=== PATIENT | male | born 1950 | race Caucasian/White ===

== ENCOUNTER 2017-11-14 17:06 | Inpatient (IN) | payer OTHER, MEDICARE ==
[2017-11-14] MEDS ORDERED: Ticagrelor* 90 MG TAB PO ONE ×2 (17:14→18:33)
[2017-11-14] MEDS ORDERED: Heparin for STEMI(*) 5,000 UNITS/ML 1 ML VIAL IV ONE (17:14)
[2017-11-14] MEDS ORDERED: NS 0.9% 1000 ML* 1,000 ML IV ONE ×2 (17:14→20:43)
[2017-11-14] MEDS ORDERED: Lidocaine 1%* 5 ML VIAL ONE ×2 (17:26→20:16)
[2017-11-14] MEDS ORDERED: Iohexol 350 (CONTRAST) 200 ML MDV IV ONE (17:26)
[2017-11-14] MEDS ORDERED: fentaNYL* 50 MCG/ML 2 ML VIAL (100 MCG VIAL) ONE ×2 (17:27→18:28)
[2017-11-14] MEDS ORDERED: Midazolam* 1 MG/ML 10 ML VIAL (10 MG) ONE (17:27)
--- NOTE | 2017-11-14 17:28 | ED ---
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 The pt is on vacation with his and they had just gotten back to the hotel when he began to feel the pain. The heaviness and pressure was rated 10/10 in severity at onset, but has since started to resolve in the ED and after 3x NTG and aspirin in the ambulance. He denies nausea, vomiting, and back pain. Also in the ambulance, the pt was having ST elevations in the inferior wall. He has hx of thoracic aorta aneurysm which is being monitored. No hx of ulcers, heart cath, or kidney issues. - History of Current Complaint Chief Complaint: EDChestPainROMI Hx Obtained From: Patient Onset/Duration: Started Minutes Ago, Resolved Timing: Lasting Minutes Initial Severity: Severe Current Severity: Mild Pain Intensity: 10 Pain Scale Used: 0-10 Numeric Chest Pain Location: Mid Sternal Chest Pain Radiates: No Character: Crushing, Heaviness, Pressure/Squeezing Aggravating Factor(s): Nothing Alleviating Factor(s): NTG 123 - 3, Other: - baby aspirin Associated Signs and Symptoms: Positive: Chest Pain - mid sternal, Other: - NEGATIVE: back pain. Negative: Nausea, Vomiting - Allergy/Home Medications Allergies/Adverse Reactions: Allergies Allergy/AdvReac Type Severity Reaction Status Date / Time levofloxacin [From Levaquin] Allergy Unknown Verified 11/14/17 17:17 Reaction Details Home Medications: Home Medications Unobtainable 11/14/17 [History Confirmed 11/14/17] PMH/Surg Hx/FS Hx/Imm Hx Cardiovascular History: Reports: Other Cardiovascular Problems/Disorders - thoracic aorta aneurysm - being monitored Denies: Hx Myocardial Infarction History: Denies: Hx Kidney Infection, Hx Renal Disease EENT History: Denies: Hx Deafness Infectious Disease History: No Infectious Disease History: Denies: Traveled Outside the [place] in Last 30 Days - Family History Known Family History: Negative: Cardiac Disease - Social History Lives: With Family Substance Use Type: Reports: None Review of Systems Positive: Chest Pain - crushing, heaviness, pressure Negative: Vomiting, Nausea Positive: Other - NEGATIVE: back pain All Other Systems Reviewed And Are Negative: Yes Physical Exam - Summary Physical Exam Summary: Constitutional: Well-developed, Well-nourished, Alert. (-) Distressed Skin: Warm, Dry HENT: Normocephalic; Atraumatic Eyes: Conjunctiva normal Neck: Musculoskeletal ROM normal neck. (-) JVD, (-) Stridor, (-) Tracheal deviation Cardio: Rhythm regular, rate normal, Heart sounds normal; Intact distal pulses; The pedal pulses are 2+ and symmetric. Radial pulses are 2+ and symmetric. (-) Murmur Pulmonary/Chest wall: Effort normal. (-) Respiratory distress, (-) Wheezes, (-) Rales Abd: Soft, (-) epigastric tenderness, (-) Distension, (-) Guarding, (-) Rebound Musculoskeletal: (-) Edema Lymph: (-) Cervical adenopathy Neuro: Alert, Oriented x3 Psych: Mood and affect Normal Triage Information Reviewed: Yes Vital Signs On Initial Exam: Initial Vitals Temp Pulse Resp BP Pulse Ox 97.9 F 94 22 161/106 95 11/14/17 17:09 11/14/17 17:09 11/14/17 17:09 11/14/17 17:09 11/14/17 17:09 Vital Signs Reviewed: Yes Diagnostics - Vital Signs Vital Signs Temp Pulse Resp BP Pulse Ox 11/14/17 17:09 97.9 F 94 22 161/106 95 - Laboratory Lab Statement: Any lab studies that have been ordered have been reviewed, and results considered in the medical decision making process. 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 The pt is on vacation with his and they had just gotten back to the hotel when he began to feel the pain. The heaviness and pressure was rated 10/10 in severity at onset, but has since started to resolve in the ED and after 3x NTG and aspirin in the ambulance. He denies nausea, vomiting, and back pain. Also in the ambulance, the pt was having ST elevations in the inferior wall. He has hx of thoracic aorta aneurysm which is being monitored. No hx of ulcers, heart cath , or kidney issues. In the ED course, the pt was given nml saline, Fentanyl, Heparin, Iohexol, Lidocaine, Versed, and Brilinta. Patient is diagnosed with STEMI. Patient [facility] be [facility] [place] [facility] [place] further evaluation by Dr. Regan, [facility] , at 1715. Patient understands the need for admission and agrees with this plan. - Diagnoses Provider Diagnoses: STEMI (ST elevation myocardial infarction) - Provider Notifications Discussed Care Of Patient With: Earl Regan Time Discussed With Above Provider: 17:15 Instructed by Provider To: Admit As Inpatient - Patient will be admitted for further evaluation. Discharge - Sign-Out/Discharge Documenting (check all that apply): Patient Departure - Patient will be admitted to [facility] [place] further evaluation. All imaging exams completed and their final reports reviewed: No - Discharge Plan Condition: Stable Disposition: ADMITTED TO [facility] - Billing Disposition and Condition Condition: STABLE Disposition: Admitted to [facility] - Attestation Statements Document Initiated by Scribe: Yes Documenting Scribe: Melissa Elaine Provider For Whom Scribe is Documenting (Include Credential): Kun Tristan MD Scribe Attestation: Melissa Stephen, scribed for Kun Tristan MD on 11/14/17 at 1723. Scribe Documentation Reviewed: Yes Provider Attestation: The documentation as recorded by the Melissa aguilera accurately reflects the service I personally performed and the decisions made by me, Kun Tristan MD
[2017-11-14 17:30] LABS: ABS Basophils 0.1 10^3/ul (0-0.2); ABS Eosinophils 0.2 10^3/ul (0-0.6); ABS Lymphocytes 4.5 10^3/ul (1.0-4.8); ABS Monocytes 0.8 10^3/ul (0-0.8); ABS Neutrophils 7.5 10^3/ul (1.5-7.7); ABS Nucleated RBC 0 10^3/ul; Eosinophil % 1.2 % (0-6); Hematocrit 42 % (42-52); Hemoglobin 14.4 g/dl (14.0-18.0); Lymphocyte % 34.3 % (25-47); Mean Corpuscular HGB Conc 34 g/dl (31-36); Mean Corpuscular Hemoglobin 30 pg (27-31); Mean Corpuscular Volume 87 fL (80-94); Mean Platelet Volume 7.6 um3 (7.4-10.4); Nucleated Red Blood Cells % 0; Platelet Count 132 10^3/ul (150-450); Red Blood Count 4.88 10^6/ul (4.00-5.40); Red Cell Distribution Width 14 % (10.5-15)
[2017-11-14 17:39] LABS: INR 0.91 (0.77-1.02)
[2017-11-14 17:48] LABS: EGFR Non-African American 48.3 (>60)
[2017-11-14] MEDS ORDERED: nitroGLYCERIN DRIP* 25,000 MCG/250 ML BTL ONE (17:59)
[2017-11-14] MEDS ORDERED: Iodixanol* (CONTRAST) 320 MG/ML 100 ML SDV ONE ×2 (18:07→19:04)
[2017-11-14] MEDS ORDERED: Heparin(*) 1000 UNIT/ML 10 ML VIAL CATH LAB IV ONE (18:30)
[2017-11-14] MEDS ORDERED: Heparin 2 UNITS/ML IVPREMIX* 1,000 ML IV ONE (19:10)
[2017-11-14] MEDS ORDERED: Zolpidem TAB* 5 MG PO PRN (20:43)
[2017-11-14] MEDS ORDERED: Nitroglycerin TAB 0.4 MG* 0.4 MG TAB SL PRN (20:43)
[2017-11-14] MEDS ORDERED: ceFAZolin 1 GM ADVAN(*) 1 GM in NS 0.9% 50 ML* 50 ML IVPB ONE (20:54)
[2017-11-14] MEDS: oxyCODONE/Acetamin 5/325 MG* TAB PO PRN (21:23)
[2017-11-14] MEDS: Captopril TAB* 12.5 MG PO SCH (22:10)
[2017-11-14] MEDS: Ticagrelor* 90 MG TAB PO SCH (22:11)
[2017-11-14] MEDS ORDERED: nitroGLYCERIN DRIP* 25,000 MCG/250 ML BTL IV SCH (23:00)
[2017-11-14] MEDS ORDERED: LORazepam INJ* 2 MG/ML 1 ML VIAL IV ONE (23:12)
[2017-11-14] MEDS ORDERED: LORazepam INJ* 2 MG/ML 1 ML VIAL ONE (23:14)
[2017-11-14] MEDS: Metoprolol Tartrate TAB* 25 MG PO SCH (23:16)
[2017-11-15] MEDS: oxyCODONE/Acetamin 5/325 MG* TAB PO PRN ×2 (03:20→10:08)
[2017-11-15] MEDS: Metoprolol Tartrate TAB* 25 MG PO SCH (06:02)
[2017-11-15 06:25] LABS: ABS Basophils 0 10^3/ul (0-0.2); ABS Eosinophils 0.1 10^3/ul (0-0.6); ABS Lymphocytes 3.1 10^3/ul (1.0-4.8); ABS Neutrophils 7.2 10^3/ul (1.5-7.7); ABS Nucleated RBC 0 10^3/ul; Eosinophil % 0.9 % (0-6); Hematocrit 37 % (42-52); Hemoglobin 12.8 g/dl (14.0-18.0); Lymphocyte % 27.2 % (25-47); Mean Corpuscular HGB Conc 35 g/dl (31-36); Mean Corpuscular Hemoglobin 30 pg (27-31); Mean Corpuscular Volume 85 fL (80-94); Mean Platelet Volume 7.9 um3 (7.4-10.4); Nucleated Red Blood Cells % 0.1; Platelet Count 117 10^3/ul (150-450); Red Blood Count 4.29 10^6/ul (4.00-5.40); Red Cell Distribution Width 14 % (10.5-15); White Blood Count 11.4 10^3/ul (3.5-10.8)
[2017-11-15 06:42] LABS: EGFR Non-African American 64.3 (>60)
[2017-11-15] MEDS: Acetaminophen TAB* 325 MG PO PRN ×2 (08:15→16:23)
--- NOTE | 2017-11-15 09:12 | ECHO ---
Patient: JOSEE MCKEE Rec#: [id number] : 1950 Date: 11/15/2017 Age: 67y Height: 175.26 cm / 69.0 in Weight: 113.4 kg / 249.9 lbs Sex: M BSA: 2.27 Room#: [facility]- Admit Date#: 11/14/2017 Type: Inpatient Referring: Mily Riojas MD Reading: Bandar Chappell MD Salt Operator: Shona OrantesJESSE Transthoracic Echocardiogram Indication: STEMI, s/p PCI BP: 128/58 HR: 72 Rhythm: NSR Findings History: HTN, thoracic aortic aneurysm,STEMI, PCI Technical Comments: The study quality is fair. Completed at 0830. Left Ventricle: The left ventricular chamber size is normal. Mild concentric left ventricular hypertrophy is observed. There is a prominent septal knuckle. There is mildly decreased left ventricular systolic function. The estimated ejection fraction is 45-50%. closer to 45%. Inferior and inferoseptal hypokinesis with hyperdynamic function elsewhere. Abnormal left ventricular diastolic function is observed. Abnormal left ventricular diastolic filling is observed, consistent with impaired relaxation. The mid inferior, mid inferoseptal, apical septal, and apical inferior wall segments are hypokinetic (score 2). The basal inferior wall segment is dyskinetic (score 4). Overall wallmotion score index is 1.44 Left Atrium: The left atrium is moderately dilated. Right Ventricle: Moderator Band present. The right ventricle is moderately dilated. The right ventricle wall thickness is mildly increased.6 mm. The right ventricular global systolic function is mildly reduced. Right Atrium: The right atrium is moderately dilated. Aortic Valve: The aortic valve is trileaflet. There is mild thickening of the right coronary cusp. There is evidence of aortic sclerosis without stenosis. There is a trace of aortic regurgitation. There is no evidence of aortic stenosis. Mitral Valve: The mitral valve leaflets are mildly thickened. There is mild mitral regurgitation. There is no evidence of mitral stenosis. Tricuspid Valve: The tricuspid valve leaflets are normal. There is mild tricuspid regurgitation. The right ventricular systolic pressure is estimated at 35 mmHg. There is evidence that pulmonary hypertension may be underestimated. There is no tricuspid stenosis. Pulmonic Valve: The pulmonic valve appears normal. There is a trace pulmonic regurgitation. There is no pulmonic stenosis. Pericardium: There is no significant pericardial effusion. A pericardial fat pad is visualized. Aorta: There is moderate dilatation of the ascending aorta. The aortic arch is not well visualized. There is moderate dilatation of the aortic root. Pulmonary Artery: The main pulmonary artery appears normal. Venous: The inferior vena cava is dilated. There is a greater than 50% respiratory change in the inferior vena cava dimension. Summary: There was not any prior study for comparison. Conclusions Mild concentric left ventricular hypertrophy is observed. There is mildly decreased left ventricular systolic function. The estimated ejection fraction is 45-50%. closer to 45%. Inferior and inferoseptal hypokinesis with hyperdynamic function elsewhere. Abnormal left ventricular diastolic filling is observed, consistent with impaired relaxation. The left atrium is moderately dilated. The right ventricle is moderately dilated. The right ventricle wall thickness is mildly increased.6 mm. The right ventricular global systolic function is mildly reduced. The right atrium is moderately dilated. There is evidence of aortic sclerosis without stenosis. There is mild mitral regurgitation. There is mild tricuspid regurgitation. There is moderate dilatation of the ascending aorta. There is moderate dilatation of the aortic root. Measurements Name Value Normal Range RVIDd (AP) 2D 3.7 cm (0.9 - 2.6) RVDdMajor (2D) 5.5 cm (2.2 - 4.4) RAd ISD 4CH 5.8 cm (3.4 - 4.9) RA (A4C)W 4.8 cm (2.9 - 4.6) IVSd (2D) 1.2 cm (0.6 - 1) LVPWd (2D) 1.1 cm (0.6 - 1) LVIDd (2D) 5.2 cm (3.6 - 5.4) LVIDs (2D) 3 cm - LV FS (2D) 41 % (25 - 45) Aortic Annulus 2.2 cm (1.4 - 2.6) Ao root diameter (2D) 4.3 cm (2.1 - 3.5) Ascending Ao 4.5 cm (2.1 - 3.4) LA dimension (AP) 2D 4.2 cm (2.3 - 3.8) LAd ISD 4CH 5.6 cm (2.9 - 5.3) LA ISD 4CH W 4.5 cm (2.5 - 4.5) Name Value Normal Range LA ESV SP 4CH (A/L) 73 ml - LA ESV SP 2CH (A/L) 105 ml - LA ESV BP (A/L) 99 ml - LA ESV BP (A/L) index 43 ml/m2 - LA ESV SP 4CH (MOD) 63 ml - LA ESV SP 2CH (MOD) 100 ml - Name Value Normal Range MV E-wave Vmax 0.79 m/sec - MV deceleration time 206.8 msec - MV A-wave Vmax 0.65 m/sec - MV E:A ratio 1.21 ratio - LV septal e' Vmax 0.05 m/sec - LV lateral e' Vmax 0.09 m/sec - LV E:e' septal ratio 15.8 ratio - LV E:e' lateral ratio 8.78 ratio - Name Value Normal Range AV Vmax 1.14 m/sec - AV VTI 23.39 cm - AV peak gradient 5.25 mmHg - AV mean gradient 3.01 mmHg - LVOT Vmax 0.72 m/sec - LVOT VTI 13.51 cm - LVOT peak gradient 2.09 mmHg - LVOT mean gradient 1.17 mmHg - ROSY Vmax 0.65 m/sec - Name Value Normal Range TR Vmax 2.6 m/sec - TR peak gradient 27 mmHg - RAP 8 mmHg - RVSP 35 mmHg - IVC diameter 2.3 cm - Name Value Normal Range PV Vmax 1.03 m/sec - PV peak gradient 4.27 mmHg - DC end-diastolic Vmax 1.19 m/sec - Wallmotion BAS Normal BA Normal BAL Normal MAUREEN Normal BI Dyskinetic BIS Normal MAS Normal MA Normal MAL Normal MIL Normal NM Hypokinetic MIS Hypokinetic Hypokinetic AA Normal AL Normal AI Hypokinetic APEX Normal
[2017-11-15] MEDS: Ticagrelor* 90 MG TAB PO SCH ×2 (10:07→20:33)
[2017-11-15] MEDS: Captopril TAB* 12.5 MG PO SCH ×3 (10:07→20:33)
[2017-11-15] MEDS: Aspirin 81 mg CHEW TAB* 81 MG TAB.CHEW PO SCH (10:07)
[2017-11-15] MEDS: CMCS Nebivolol TAB (NF) 2.5 MG TAB PO SCH (10:08)
[2017-11-15] MEDS: Enoxaparin(*) 100 MG/ML SYR SUBCUT SCH (14:05)
[2017-11-15] MEDS: Atorvastatin* 80 MG TAB PO SCH (16:23)
--- NOTE | 2017-11-15 19:48 | HP ---
CC: Dr. Bandar Calderon, fax number [phone] * HISTORY AND PHYSICAL: DATE OF ADMISSION: 11/14/17 PRIMARY RULING MACHINE OPERATOR: Dr. Bandar Calderon. HISTORY OF PRESENT ILLNESS: A 67-year-old male vacationing in the area, presenting to the ER with inferior ST elevation infarct. He reports that he has a known probably ascending aortic aneurysm that has been followed for 5 to 6 years and has been stable. He recalls having had a stress test he believes about 8 months ago, which was to his knowledge normal. He has no history of angina. He is vacationing locally, this afternoon developed precordial chest pain, in the field EKG from [address] elevation in II, III and aVF with very slight J-point elevation in V3, V4, and reciprocal ST depression in I and aVL. The baseline was wandering, but meets STEMI criteria with [address] elevation. Repeat EKG in the ER at 1711 shows again [address] elevation with reciprocal ST depression in I and aVL with less precordial J-point change. He was [facility] the [facility] for emergent catheterization. He has not had any heart failure symptoms, change in exercise tolerance, palpitations or syncope. He has recently lost some 20 pounds of weight intentionally. He does not exercise regularly. He is medically treated for hypertension, to his knowledge has been controlled, he does not know his renal function. He has a history of hyperlipidemia, on Pravachol 10 daily. PAST MEDICAL HISTORY: Hypertension, obesity, BPH, hyperlipidemia. PRE-HOSPITAL MEDICATIONS: 1. Bystolic 20 mg daily. 2. Pravachol 10 mg daily. 3. Flomax probably 0.6 mg daily. 4. Aspirin 81 daily. ALLERGIES: He is allergic to LEVAQUIN, but not penicillin. FAMILY HISTORY: Positive for coronary disease with father having an infarct in his 60s. SOCIAL HISTORY: He is a nonsmoker. 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 He does not exercise regularly. Pulmonary: No history of hemoptysis, he does have history of exertional dyspnea which is fairly mild. GI: No history of peptic ulcer disease or bleeding, tolerates aspirin 81. Heme: No history of malignancy or anemia. Circulatory: No claudication. Endocrine: No known history of diabetes. Musculoskeletal: About 2 months ago , he had a fall and apparently developed a rotator cuff right-sided shoulder injury, which he is treating with physical therapy, it is causing chronic pain. Two weeks ago, he fell on his arm, which exacerbated the upper right arm discomfort. Remainder of review of systems all negative. PHYSICAL EXAMINATION GENERAL: In the ER, he complained of moderate chest discomfort. In addition to his chest pain, he is also complaining of right shoulder pain, which as far as I can discern is his chronic pain. HEENT: No xanthelasma, scleral injection, or jaundice. EOMs normal. Cranial nerves intact. NECK: JVP not elevated. Carotids normal. No bruits. LUNGS: Clear to percussion and auscultation. CARDIAC: RV and apex not palpable. Normal S1, S2. No gallop, murmur, or rub. ABDOMEN: Obese, nontender. No bruit. I cannot feel the aorta. Femoral pulses 2+, no bruits. EXTREMITIES: Radial pulses 2+. Pedal 1+. He has no cyanosis, clubbing, or edema. PSYCH: He is oriented and appropriate. SKIN: Warm and perfused. DIAGNOSTIC STUDIES/LAB DATA: EKG as above. White count 13,000, hemoglobin 14.4, hematocrit 42. Platelet count low at 132, 000 without prior. INR normal. BMP notable for a creatinine of 1.46 with BUN 27, GFR of 48.3. Bilirubin 1.1, random blood sugar 114. BNP elevated at 169. Cholesterol 185, triglycerides high at 470, LDL 111, HDL 42.2 on Pravachol 10. Hemoglobin A1c normal at 5.4. CPK 101, MB 1.8, troponin 0. IMPRESSION: 1. Inferior wall ST elevation infarct. He underwent emergent catheterization. 2. Renal insufficiency, unknown duration, stage 3. 3. History of hypertension, medically treated. 4. History of hyperlipidemia, medically treated. 5. Obesity with intentional weight loss and interest in more healthy life habits. 6. Thrombocytopenia, unknown duration, unknown etiology. Current level does not preclude DAPT. 7. Known ascending aortic aneurysm, by history stable. [id number]/[facility] #: [id number] [facility]
[2017-11-16] MEDS: Acetaminophen TAB* 325 MG PO PRN ×3 (00:41→17:32)
[2017-11-16] MEDS: Enoxaparin(*) 100 MG/ML SYR SUBCUT SCH ×2 (01:25→13:47)
[2017-11-16 06:38] LABS: EGFR Non-African American 70.7 (>60)
[2017-11-16] MEDS: Aspirin 81 mg CHEW TAB* 81 MG TAB.CHEW PO SCH (08:32)
[2017-11-16] MEDS: Captopril TAB* 12.5 MG PO SCH ×3 (08:32→20:51)
[2017-11-16] MEDS: Ticagrelor* 90 MG TAB PO SCH ×2 (08:32→20:51)
[2017-11-16] MEDS: CMCS Nebivolol TAB (NF) 2.5 MG TAB PO SCH (08:42)
[2017-11-16] MEDS: Atorvastatin* 80 MG TAB PO SCH (17:32)
--- NOTE | 2017-11-16 23:06 | CATH ---
CC: Dr. Ernesto Upton; Dr. Bandar Calderon. STENT REPORT: DATE OF PROCEDURE: 11/16/17 PRIMARY CARE PROVIDER: Dr. Ernesto Upton in [facility], his fax number is [phone] INSULATION BOARD COATER OPERATOR: Dr. Bandar Calderon of [facility], fax number [phone]. PROCEDURES: Right radial artery access, bilateral selective coronary cineangiography, stent placement RCA 3.0 x 16 Synergy drug-eluting stent, right common femoral artery access, right subclavian artery angiography, gooseneck snare capture of distal end of right radial guiding catheter with subsequent straightening of the catheter and removal through the radial sheath. MynxGrip closure right common femoral artery. HISTORY: This 67-year-old male with known ascending aortic aneurysm, which has been stable, previously fluctuating creatinine with prior normal platelet count visiting from [place], presenting with inferior wall ST elevation infarct. He underwent emergent catheterization. PROCEDURE: The procedure was complex and long because of right subclavian artery tortuosity and dilated aortic root, subsequent torquing and kinking of the radial guiding catheter necessitating right femoral access to complete right coronary revascularization and then facilitate removal of the right radial guiding catheter. MEDICATIONS: 1. Subcu lidocaine. 2. IV Versed. 3. IV fentanyl. 4. Heparin 3000 units. 5. Verapamil 3 mg, nitroglycerin 300 mcg IA, IV nitroglycerin continued. 6. Heparin 6000 units, 2000 units, 2000 units, 3000 units. 7. Brilinta 180 mg p.o. loading dose. Right radial access sheath 6F slender. DIAGNOSTIC CATHETER: TIG5 4.5, radial guiding catheters Runway FR4, Ikari right 1. After right radial artery access, diagnostic coronary angiography was performed, image quality is somewhat degraded by his obesity. I attempted to limit contrast as his presenting creatinine was elevated. Because of his dilated aortic root and right subclavian artery tortuosity catheter torque control was suboptimal, several catheters kinked and were easily removed. During catheter manipulations he complained of right forearm discomfort. He had pre-existing right shoulder pain from a fall. The right radial guiding catheter kinked and formed a loop which could not be reversed. Therefore, the right femoral artery was anesthetized, 6.5 Canadian sheath was placed in the right femoral artery. Right femoral angiogram was obtained. The RCA was engaged with a 14 BMW wire after which the mid RCA stenosis, which was hazy and the likely culprit was stented with a 3 x 16 Synergy drug-eluting stent, 11 atmosphere, 15 seconds. The moderate long tapering stenosis proximal to the crux had the appearance of a chronic plaque. Because of his elevated creatinine; knowledge of a negative stress test 6 to 8 months prior, revascularization of the distal RCA lesion was uncertain, and therefore deferred. I also knew that we would be expending contrast and fluoro time in retrieving the kinked and looped right radial access guiding catheter. The RCA stent was post dilated with a 3.25 x 15 NC balloon to 18 atmosphere 30 seconds. With stent deployment his chest pain improved, ST elevation improved confirming that this was the culprit. The rest of the procedure was focused on accessing the right subclavian, which was relatively difficult because of tortuosity and a tendency for the wire to access the carotid. I was finally able to position the femoral guiding catheter in the right subclavian, intracoronary snare retrieval device was inserted, but could not engage the tip of the radial guiding catheter. This was exchanged for a 4 mm gooseneck snare which was advanced, passed over the end of the radial guiding catheter, advanced down to the area of the loop where it was secured. Traction on the gooseneck snare allowed straightening of the kinked and coiled guiding catheter, which was then removed through the radial sheath without any difficulty. A forearm angiogram was then performed through the radial sheath. A hemostatic band was applied. MynxGrip closure was used for the right common femoral. ANGIOGRAPHY: The images are somewhat degraded by his obesity and the number of injections were limited by due to his abnormal creatinine clearance. Opacification was adequate to ensure that no significant left-sided lesion was present. Right subclavian. It is a very tortuous. Left main. The left main is relatively short. The TIG had a tendency to select the circumflex. The circumflex is large, not dominant, with a moderate marginal and a smaller posterolateral, circumflex has a fairly diffuse nonobstructive plaquing. LAD. The LAD is moderate, extends to the apex, has a moderate first diagonal, smaller second diagonal, the LAD has no significant stenosis, although the number of views were limited. RCA. The RCA is large, dominant, calcified, has a mid 90% hazy stenosis, before the crux there is a gradual tapering tubular up to 80% stenosis, probably involving the origin of the PDA as well as the RCA continuation, distal reference diameter is 2 to 2.5 mm. The RCA is moderately tortuous. Right femoral artery. Sheath entries in segment 2, but adjacent to the bifurcation, hence intra-arterial closure was not utilized. After mid right stent placement, post dilatation, there is no residual stenosis or dissection, distal flow is JONATHON-3. Chest pain and ST changes improved. The moderately severe stenosis prior to the crux is unchanged. Right subclavian angiogram. The right subclavian is again seen, is tortuous, the carotid origin is evident. There is no proximal carotid stenosis, nor subclavian stenosis. Once the gooseneck snare was used to remove the kinked and coiled guiding catheter a forearm angiogram shows a radial artery to be widely patent without occlusion or stenosis or dissection, the distal brachial artery is patent, it was not imaged proximal to the elbow. 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 Distal RCA stenosis was not approached for several reasons: 1. Abnormal creatinine. 2. Uncertain need for revascularization given a prior negative stress test 6 to 8 months prior with presumably a new culprit lesion due to ruptured plaque in mid RCA. 3. Anticipated additional fluoro time in contrast required to retrieve coiled guiding catheter from the right arm. Successful retrieval kinked and coiled guiding catheter, right radial access as above. If he needs future intervention I would recommend against using the radial approach because of great catheter torque and movement difficulty due to his subclavian artery angulation/tortuosity and his dilated aortic root. Successful right common femoral artery MynxGrip closure. [id number]/[facility] #: [id number] [facility]
[2017-11-17] MEDS: Enoxaparin(*) 100 MG/ML SYR SUBCUT SCH (03:26)
[2017-11-17] MEDS: Aspirin 81 mg CHEW TAB* 81 MG TAB.CHEW PO SCH (08:11)
[2017-11-17] MEDS: Acetaminophen TAB* 325 MG PO PRN (08:11)
[2017-11-17] MEDS: Ticagrelor* 90 MG TAB PO SCH (08:11)
[2017-11-17] MEDS: CMCS Nebivolol TAB (NF) 2.5 MG TAB PO SCH (08:12)
[2017-11-17] MEDS ORDERED: Lisinopril TAB* 10 MG PO SCH (09:00)
[2017-11-17 13:19] VITALS: BP 113/67
--- NOTE | 2017-11-17 16:08 | DS ---
CC: Dr. Ernesto Upton in [place], fax number is [phone]; Dr. Bandar Calderon, [facility], fax number [phone]; Mily Riojas MD DISCHARGE SUMMARY: DATE OF ADMISSION: 11/14/17. DATE OF DISCHARGE: 11/17/17. PRIMARY CARE PHYSICIAN: Dr. Ernesto Upton in [place], fax number is . GEOPHYSICAL LABORATORY SUPERVISOR: Dr. Bandar Calderon, [facility], fax number [phone]. DISCHARGE DIAGNOSES: 1. Inferior wall ST elevation infract. 2. Hypertension. 3. Obesity. 4. Hyperlipidemia. 5. Thrombocytopenia. 6. Renal insufficiency. 7. Ascending aortic aneurysm. 8. Benign prostatic hypertrophy. CONDITION ON DISCHARGE: Stable. PROCEDURES: Cardiac cath, stent placement RCA, 3 x 16 Synergy drug-eluting stent, right radial and right common femoral access, removal of torqued and kinked right radial guiding catheter, echocardiography, telemetry. DISCHARGE MEDICATIONS: 1. Aspirin 81 mg daily. 2. Lipitor 80 mg daily. 3. Lisinopril 10 mg daily. 4. Bystolic 20 mg daily. 5. Nitroglycerin 0.4 sublingual p.r.n. 6. Brilinta 90 mg b.i.d. ALLERGIES: Allergy to LEVAQUIN. FOLLOWUP: Follow up with Dr. Upton and Dr. Calderon as has been arranged. The patient has a copy of his cath CD. DISCHARGE DIET: Low fat, low cholesterol, cardiac. ACTIVITY: No strenuous exertion for 1 week. WOUND CARE: Shower only for 2 more days. Do not lift more than 10 pounds, right arm for 2 days. HISTORY: See H and P. LABORATORY DATA/DIAGNOSTIC STUDIES: His initial creatinine was elevated at 1.46 , he was hydrated post cath, creatinine subsequently decreased to 1.14 on , and then 1.05 on 11/16/17. His electrolytes on 11/15/17, remain normal. His random blood sugar is elevated at 151 on the at 6 in the morning, but his A1c is normal at 5.4. His BNP on presentation was 169. His CPK peaked at 345 on initial determination with subsequent decrease, MB peaked at 30. His cholesterol was 185 with triglycerides high at 470. LDL 111, HDL 42.2 on his Pravachol on admission. His platelet count on the was 132,000, on the was 117,000, stable. He was thrombocytopenic before he received any heparin. He had a normal platelet count about 2 years ago, he will follow up with Dr. Upton for his thrombocytopenia. Echocardiogram on 11/15/17, reported LVEF of 45 to 50, with an inferior wall motion abnormality, I suspect this is in part due to stunning given the relatively low CPK- MB peak. HOSPITAL COURSE: He presented with an inferior wall ST elevation infarct with concomitant renal insufficiency as well as thrombocytopenia. He underwent emergent catheterization via the right radial approach, was found to have a culprit mid RCA hazy stenosis with a probably stable plaque more distally before the crux involving the bifurcation. Right radial guiding catheter movement was very difficult because of the dilatation of his ascending aorta as well subclavian tortuosity, several guiding catheters kinked and were removed without difficulty. However, the last radial guiding catheter kinked and torqued into a loop, which could not be easily removed. We therefore switched to the right femoral approach, finished right coronary revascularization with stenting as above and then used the right femoral guide to deploy a gooseneck snare which was used to straighten and uncoil the right radial guiding catheter , which was then removed without difficulty. He had a MynxGrip closure right groin, developed initially small hematoma which has dissipated, but he has a moderate ecchymosis with mild tenderness, without a bruit or compromise. His right radial artery in spite of using a hemostatic band and post procedure Lovenox is likely occluded or at least stenotic. He does have detectable normal saturation in his hand with the radial artery occluded, but does not have a pulsatile waveform. I have explained to him that there is no indication to reopen the right radial artery unless he develops future issues with it. Currently, he has no claudication, there is no abnormality at the puncture site , he has not compromised of his hand. However, I would advise avoiding radial access for him in the future because of the great difficulty with catheter movement. Post revascularization, he had no chest pain, arrhythmias, or heart failure. He ambulated without difficulty, he is tolerating his high-dose statin, dual- antiplatelet therapy, lisinopril was added because of his hypertension as well as his LV dysfunction, which I expect will improve. He is intending to discuss with his primary physician eventual removal of beta-blockers as he has erectile dysfunction. We had extensive discussions regarding secondary risk factor modification, I think he is motivated. He has already lost 20 pounds prior to admission, he is interested in cardiac rehab. On the day of discharge, he is asymptomatic, with stable vital signs,clear lungs, normal cardiac exam, and unremarkable right wrist with probably a stenotic or occluded right distal radial artery, but a palpable ulnar artery. His right groin is minimally tender with a moderate ecchymosis, but no hematoma or bruit. Pedal pulse is normal. EKG today shows inferior Q-wave infarct. He received full discharge instructions, prescriptions. [id number]/[facility] #: [id number] MTDD
== END 2017-11-17 13:30 | disposition home or self-care (01) | DRG 174 ==
LOC: ED 17:06 → CHICATH 17:15 → ICU 20:57 → MEDTELE 11-15 13:23
PROVIDERS: ADMIT Internal Medicine Cardiovascular Disease; ATTEND Internal Medicine Cardiovascular Disease
PROC: B2111ZZ Fluoroscopy of Multiple Coronary Arteries using Low Osmolar Contrast (ICD-10-PCS; principal; 2017-11-16)
PROC: 027034Z Dilation of Coronary Artery, One Artery with Drug-eluting Intraluminal Device, Percutaneous Approach (ICD-10-PCS; 2017-11-16)
PROC: B3111ZZ Fluoroscopy of Right Brachiocephalic-Subclavian Artery using Low Osmolar Contrast (ICD-10-PCS; 2017-11-16)
DX: I21.19 ST elevation (STEMI) myocardial infarction involving other coronary artery of inferior wall (principal); I71.2 Thoracic aortic aneurysm, without rupture; N40.0 Benign prostatic hyperplasia without lower urinary tract symptoms; E66.9 Obesity, unspecified; I25.10 Atherosclerotic heart disease of native coronary artery without angina pectoris; G89.29 Other chronic pain; N28.9 Disorder of kidney and ureter, unspecified; D69.6 Thrombocytopenia, unspecified; E78.5 Hyperlipidemia, unspecified; Z68.39 Body mass index [BMI] 39.0-39.9, adult; Z82.49 Family history of ischemic heart disease and other diseases of the circulatory system; Z88.1 Allergy status to other antibiotic agents; Z79.82 Long term (current) use of aspirin; Z79.02 Long term (current) use of antithrombotics/antiplatelets; R58 Hemorrhage, not elsewhere classified
CPT/HCPCS: 36415; 80048; 80053; 80061; 82550; 82553; 83036; 83721; 83874; 83880; 84484; 85025; 85347; 85610; 85730; 86850; 86900; 86901; 87641; 93005; 93306; 99156; 99157; 99285; A9270-GY; C1725; C1760; C1769; C1773; C1876; C1887; C9606-RC; J0690; J1644; J1650; J2060; J2250; J3010